=== PATIENT | female | born 1990 | race Caucasian/White ===

== ENCOUNTER 2016-09-03 22:12 | Emergency (ER) | payer OTHER ==
--- NOTE | 2016-09-03 23:14 | ED ORDER SUMMARY ---
..... Patient: ROMEO JACKSON OrderSheet [facility] VisitID: [id number] [address] [place] [address] 26y, F Registration Date/Time: 09/03/2016 ORDER SHEET Weight: 52.1 kg (stated) Allergies: No Known Drug Allergy GENERAL ORDERS: Urine Drug Screen Urgent (22:55 09/03/2016 Rahel GILMAN) (Ack 22:57 AMcQuoid ER Tech1) Urine Urgent (22:55 09/03/2016 Rahel GILMAN) (Ack 22:57 AMcQuoid ER Tech1) MEDICATION ORDERS: IV FLUIDS: ORDER SHEET NOTES: [Electronically signed by Tiffanie Albarado R.N. (23:13 09/03/2016)] [Electronically locked/signed by Tiffanie Albarado R.N. (23:13 09/03/2016)]
--- NOTE | 2016-09-03 23:14 | ED NURSING NOTES ---
Clinical Report - Nurses [facility] [address] [place] [address] 09/03/2016 22:16 Patient: ROMEO JACKSON TRIAGE Triage time 2230. Acuity: LEVEL 4. Chief Complaint: CHILLS, MUSCLE ACHES, DIZZINESS, NAUSEA and VOMITING. Alert. No acute distress. BETTY COMA SCORE: Betty Coma Scale: 15- eyes open spontaneously (4); best verbal response- oriented x 4 (5); best motor response- obeys commands (6). --22:39 Carola Plasencia R.N. 22:28 09/03/16. BP: 122/100 (regular adult cuff) taken on the left arm, via an automated monitor, while lying. HR: 123. RR: 22. O2 saturation: 100% on room air. Temp: 97.4 F (oral). Pain level now: 0/10. --22:39 Carola Plasencia R.N. Weight: 52.1 kg stated. Height/Length: 62 inches Per Patient. BMI: 21. --22:30 Carola Plasencia R.N. Medications None. --22:28 Carola Plasencia R.N. Medication/allergy information source: the patient. --22:39 Carola Plasencia R.N. Allergies No Known Drug Allergy. --22:28 Carola Plasencia R.N. History Arrived by private vehicle. Historian: patient. Accompanied by friend. Primary physician (Dr. Gaston). ( Pt states feeling dizzy for the past week, vomiting, with what she thinks is a fever, muscle aches, sore throat, palpitations. Also complaints of tooth ache on both left side (bottom and top) and right top. Pt thinks that she is dehydrated and is here for further evaluation). Onset. (1 week). She has had fever and weakness. Reports muscle aches. No cough, difficulty breathing or skin rash. 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 PAST MEDICAL HX: Immunizations: status is unknown. Last normal menstrual period was 2 weeks ago- 2 months ago. Sexual history - sexually active. Uses control pills. SOCIAL HX: Current some days smoker (cigarette). History of heavy drug use: marijuana. (1 1/2 weeks). No alcohol use. SELF HARM ASSESSMENT: A self harm assessment was performed. The patient answered "no" to the question "Have you recently had thoughts about harming or killing others?". FALL RISK ASSESSMENT: Fall risk assessment completed. No fall risk identified. NUTRITIONAL RISK ASSESSMENT: The nutritional risk assessment revealed no deficiencies. FUNCTIONAL ASSESSMENT: Functional assessment: no impairments noted. LEARNING NEEDS ASSESSMENT: The learning needs assessment revealed no barriers. SKIN INTEGRITY ASSESSMENT: Skin integrity risk assessment completed. No skin integrity risk identified. --22:39 Carola Plasencia R.N. PROBLEMS: Depression. Anxiety disorder. Bipolar Disorder. Scoliosis. Bulimia. Anorexia Nervosa. --22:29 Carola Plasencia R.N. ADDITIONAL SURGERIES: no known surgeries. Interventions ID band on patient. --22:39 Carola Plasencia R.N. PHYSICAL ASSESSMENT Ambulatory to room. GENERAL / NEURO / PSYCH: Alert. Oriented X 4. Appears in no acute distress. Appears anxious. RESPIRATORY: Respirations not labored. Breath sounds within normal limits. CVS: Capillary refill less than 2 seconds. GI / : Abdomen soft and nontender and normal bowel sounds. SKIN: Skin intact. Skin is warm and dry. Normal skin turgor. --22:39 Carola Plasencia R.N. NURSING PROGRESS NOTES The initial plan of care for this patient has been created This plan of care was discussed with the patient. Patient gowned. Warming measures: blanket applied. Reassurance given. Two patient identifiers checked. Call light placed in reach. Side rails up x 1. Bed placed in lowest position. Brakes of bed on. Patient ready for evaluation- chart flagged. --22:39 Carola Plasencia R.N. Care transferred and report given (CRYSTAL Moreno). --22:43 Carola Plasencia R.N. 23:00 09/03/16. ( Attemted to collect urine sample from patient. Found gown on the bed, Patient not in room. Waiting room searched. Pt not found.). --23:12 Tiffanie Albarado R.N. DISPOSITION / DISCHARGE 23:13 09/03/16. The patient left the Emergency Department without being seen by a physician; patient was accompanied by a attorney lawyer. The patient appears to be alert and oriented x4. Gown found on bed. Unable to locate patient. Patient paged three times with no response. Notified the ED physician of patient departure. --23:13 Tiffanie Albarado R.N. Locked/Released at 09/03/2016 23:13 by Tiffanie Albarado R.N.
--- NOTE | 2016-09-03 23:14 | ED NURSING NOTES ---
Clinical Report - Nurses [facility] [address] [place] [address] 09/03/2016 22:16 Patient: ROMEO JACKSON TRIAGE Triage time 2230. Acuity: LEVEL 4. Chief Complaint: CHILLS, MUSCLE ACHES, DIZZINESS, NAUSEA and VOMITING. Alert. No acute distress. BETTY COMA SCORE: Betty Coma Scale: 15- eyes open spontaneously (4); best verbal response- oriented x 4 (5); best motor response- obeys commands (6). --22:39 Carola Plasencia R.N. 22:28 09/03/16. BP: 122/100 (regular adult cuff) taken on the left arm, via an automated monitor, while lying. HR: 123. RR: 22. O2 saturation: 100% on room air. Temp: 97.4 F (oral). Pain level now: 0/10. --22:39 Carola Plasencia R.N. Weight: 52.1 kg stated. Height/Length: 62 inches Per Patient. BMI: 21. --22:30 Carola Plasencia R.N. Medications None. --22:28 Carola Plasencia R.N. Medication/allergy information source: the patient. --22:39 Carola Plasencia R.N. Allergies No Known Drug Allergy. --22:28 Carola Plasencia R.N. History Arrived by private vehicle. Historian: patient. Accompanied by friend. Primary physician (Dr. Gaston). ( Pt states feeling dizzy for the past week, vomiting, with what she thinks is a fever, muscle aches, sore throat, palpitations. Also complaints of tooth ache on both left side (bottom and top) and right top. Pt thinks that she is dehydrated and is here for further evaluation). Onset. (1 week). She has had fever and weakness. Reports muscle aches. No cough, difficulty breathing or skin rash. 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 PAST MEDICAL HX: Immunizations: status is unknown. Last normal menstrual period was 2 weeks ago- 2 months ago. Sexual history - sexually active. Uses control pills. SOCIAL HX: Current some days smoker (cigarette). History of heavy drug use: marijuana. (1 1/2 weeks). No alcohol use. SELF HARM ASSESSMENT: A self harm assessment was performed. The patient answered "no" to the question "Have you recently had thoughts about harming or killing others?". FALL RISK ASSESSMENT: Fall risk assessment completed. No fall risk identified. NUTRITIONAL RISK ASSESSMENT: The nutritional risk assessment revealed no deficiencies. FUNCTIONAL ASSESSMENT: Functional assessment: no impairments noted. LEARNING NEEDS ASSESSMENT: The learning needs assessment revealed no barriers. SKIN INTEGRITY ASSESSMENT: Skin integrity risk assessment completed. No skin integrity risk identified. --22:39 Carola Plasencia R.N. PROBLEMS: Depression. Anxiety disorder. Bipolar Disorder. Scoliosis. Bulimia. Anorexia Nervosa. --22:29 Carola Plasencia R.N. ADDITIONAL SURGERIES: no known surgeries. Interventions ID band on patient. --22:39 Carola Plasencia R.N. PHYSICAL ASSESSMENT Ambulatory to room. GENERAL / NEURO / PSYCH: Alert. Oriented X 4. Appears in no acute distress. Appears anxious. RESPIRATORY: Respirations not labored. Breath sounds within normal limits. CVS: Capillary refill less than 2 seconds. GI / : Abdomen soft and nontender and normal bowel sounds. SKIN: Skin intact. Skin is warm and dry. Normal skin turgor. --22:39 Carola Plasencia R.N. NURSING PROGRESS NOTES The initial plan of care for this patient has been created This plan of care was discussed with the patient. Patient gowned. Warming measures: blanket applied. Reassurance given. Two patient identifiers checked. Call light placed in reach. Side rails up x 1. Bed placed in lowest position. Brakes of bed on. Patient ready for evaluation- chart flagged. --22:39 Carola Plasencia R.N. Care transferred and report given (CRYSTAL Moreno). --22:43 Carola Plasencia R.N. 23:00 09/03/16. ( Attemted to collect urine sample from patient. Found gown on the bed, Patient not in room. Waiting room searched. Pt not found.). --23:12 Tiffanie Albarado R.N. DISPOSITION / DISCHARGE 23:13 09/03/16. The patient left the Emergency Department without being seen by a physician; patient was accompanied by a sand hauler. The patient appears to be alert and oriented x4. Gown found on bed. Unable to locate patient. Patient paged three times with no response. Notified the ED physician of patient departure. --23:13 Tiffanie Albarado R.N. Locked/Released at 09/03/2016 23:13 by Tiffanie Albarado R.N.
--- NOTE | 2016-09-03 23:14 | ED CLINICAL REPORT ---
Clinical Report - Physicians/Mid Levels [facility] [place] [address] [place] [address] 09/03/2016 22:16 Patient: ROMEO JACKSON Time Seen: 22:46. Arrived- By private vehicle. Historian- patient. (Electronically signed by Landry Joyner MD 09/03/2016 23:57)
--- NOTE | 2016-09-03 23:14 | ED ORDER SUMMARY ---
..... Patient: ROMEO JACKSON OrderSheet [facility] VisitID: [id number] [address] [place] [address] 26y, F Registration Date/Time: 09/03/2016 ORDER SHEET Weight: 52.1 kg (stated) Allergies: No Known Drug Allergy GENERAL ORDERS: Urine Drug Screen Urgent (22:55 09/03/2016 Rahel GILMAN) (Ack 22:57 AMcQuoid ER Tech1) Urine Urgent (22:55 09/03/2016 Rahel GILMAN) (Ack 22:57 AMcQuoid ER Tech1) MEDICATION ORDERS: IV FLUIDS: ORDER SHEET NOTES: [Electronically signed by Tiffanie Albarado R.N. (23:13 09/03/2016)] [Electronically locked/signed by Tiffanie Albarado R.N. (23:13 09/03/2016)]
--- NOTE | 2016-09-03 23:14 | ED CLINICAL REPORT ---
Clinical Report - Physicians/Mid Levels [place] [address] [place] [address] 09/03/2016 22:16 Patient: ROMEO JACKSON Time Seen: 22:46. Arrived- By private vehicle. Historian- patient. (Electronically signed by Landry Joyner MD 09/03/2016 23:57)
--- NOTE | 2016-09-03 23:57 | ED MAR SUMMARY ---
..... Medication Administration Record [facility] [address] [place], [place] [id number] Patient: ROMEO JACKSON Visit ID: [id number] 26y, F Weight: 52.1 kg Height/Length: 62 in BMI: 21 ALLERGIES: No Known Drug Allergy
--- NOTE | 2016-09-03 23:57 | ED MED RECONCILIATION SUMMARY ---
Patient: ROMEO JACKSON Medication Reconciliation Report [facility] VisitID: [id number] [address] [place] [address] 26y, F Registration Date/Time: 09/03/2016 Weight: 52.1 kg Height/Length: 62 in. BMI: 21.0 ALLERGIES: No Known Drug Allergy The patient's Home Medications are listed below: NONE. The source(s) of the original Home Medication information: patient The following Medications were given to the patient in the Emergency Department: None. The following Medications were prescribed to the patient: None.
--- NOTE | 2016-09-03 23:57 | ED MAR SUMMARY ---
..... Medication Administration Record [facility] [address] [place], [place] [id number] Patient: ROMEO JACKSON Visit ID: [id number] 26y, F Weight: 52.1 kg Height/Length: 62 in BMI: 21 ALLERGIES: No Known Drug Allergy
--- NOTE | 2016-09-03 23:57 | ED MED RECONCILIATION SUMMARY ---
Patient: ROMEO JACKSON Medication Reconciliation Report [facility] VisitID: [id number] [address] [place] [address] 26y, F Registration Date/Time: 09/03/2016 Weight: 52.1 kg Height/Length: 62 in. BMI: 21.0 ALLERGIES: No Known Drug Allergy The patient's Home Medications are listed below: NONE. The source(s) of the original Home Medication information: patient The following Medications were given to the patient in the Emergency Department: None. The following Medications were prescribed to the patient: None.
== END 2016-09-03 23:13 | disposition left against medical advice (07) ==
LOC: ED SRH 22:12
DX: Z53.21 Procedure and treatment not carried out due to patient leaving prior to being seen by health care provider (principal)